=== PATIENT | female | born 1980 | race American Indian/Alaskan Native ===

== ENCOUNTER 2018-12-13 10:33 | Emergency (ER) | payer SELFPAY ==
[2018-12-13 10:40] VITALS: BP 131/90
[2018-12-13 11:12] LABS: HCG Qualitative,Urine Negative (Negative)
--- NOTE | 2018-12-13 11:15 | Emergency Department Report ---
HPI - General Chief Complaint: Urogenital-Female Time Seen by Provider: 12/13/18 10:49 - HPI HPI: 38-year-old [place] female presents to the emergency department, dropped off by a friend, with a complaint of a 5-6 day history of some suprapubic pain, burning with urination, increased frequency of urination. It started off as some left-sided flank pain. She says that she has noticed some blood in the urine with some small clots. She's been taking some ibuprofen and cranberry pills for her symptoms without any relief. At first she denied having any past medical history but it appears that the patient was placed on Flomax a few years ago and upon further investigation she does admit to history of kidney stones. She does not have a primary care physician. Her last menstrual cycle was November 27. ED Past Medical Hx - Past Medical History Previous Medical History?: No Hx Hypertension: No Hx Congestive Heart Failure: No Hx Diabetes: No Hx Deep Vein Thrombosis: No Hx Renal Disease: No Hx Sickle Cell Disease: No Hx Seizures: No Hx Asthma: No Hx COPD: No Hx HIV: No - Surgical History Past Surgical History?: No - Social History Smoking Status: Current Every Day Smoker Substance Use Type: None - Medications Home Medications: Home Medications Medication Instructions Recorded Confirmed Last Taken Type HYDROcodone/APAP 10-325 [Katy 1 each PO Q6HR PRN #30 tablet 09/22/14 Unknown Rx 10/325] Hyoscyamine Subl [Levsin Sl] 0.125 mg SL Q8HR PRN #20 tablet 09/22/14 Unknown Rx Ketorolac [Toradol] 10 mg PO Q8H PRN #6 tablet 09/22/14 Unknown Rx Metoclopramide [Reglan] 10 mg PO TID #30 tablet 09/22/14 Unknown Rx Ondansetron [Zofran Odt] 8 mg PO TID PRN #20 tab.rapdis 09/22/14 Unknown Rx Tamsulosin [Flomax] 0.2 mg PO QDAY 6 Days cap 09/22/14 Unknown Rx Sulfamethoxazole/Trimethoprim 1 each PO BID #20 tablet 02/04/15 Unknown Rx [Bactrim DS TAB] Cyclobenzaprine [Flexeril] 10 mg PO TID PRN #15 tablet 02/17/16 Unknown Rx Ibuprofen [Motrin] 800 mg PO Q8HR PRN #15 tablet 02/17/16 Unknown Rx HYDROcodone/APAP 5-325 [Katy 1 each PO Q6HR PRN #10 tablet 12/13/18 Unknown Rx 5/325] cephALEXin [Keflex] 1,000 mg PO Q12HR #20 cap 12/13/18 Unknown Rx ED Review of Systems ROS: Stated complaint: BLOOD IN URINE Other details as noted in HPI Constitutional: denies: chills, fever Eyes: denies: eye pain, vision change ENT: denies: ear pain, throat pain Respiratory: denies: cough, shortness of breath Cardiovascular: denies: chest pain, palpitations Gastrointestinal: abdominal pain. denies: nausea, vomiting Genitourinary: dysuria, frequency, hematuria. denies: discharge Musculoskeletal: denies: back pain, arthralgia Skin: denies: rash, lesions Neurological: denies: headache, weakness Physical Exam - Physical Exam Vital Signs: Vital Signs 12/13/18 10:39 Temperature 97.8 F Pulse Rate 94 H Respiratory 16 Rate Blood Pressure 131/90 O2 Sat by Pulse 98 Oximetry Physical Exam: GENERAL: The patient is well-developed well-nourished. HENT: Normocephalic. Atraumatic. Patient has moist mucous membranes. EYES: Extraocular motions are intact. NECK: Supple. Trachea is midline. CHEST/LUNGS: Clear to auscultation. There is no respiratory distress noted. HEART/CARDIOVASCULAR: Regular. There is no tachycardia. There is no murmur. ABDOMEN: Abdomen is soft, nontender. Patient has normal bowel sounds. There is no abdominal distention. SKIN: Skin is warm and dry. NEURO: The patient is awake, alert, and oriented. The patient is cooperative. The patient has no focal neurologic deficits. The patient has normal speech. MUSCULOSKELETAL: There is no tenderness or deformity. There is no evidence of acute injury. ED Course Vital Signs 12/13/18 10:39 Temperature 97.8 F Pulse Rate 94 H Respiratory 16 Rate Blood Pressure 131/90 O2 Sat by Pulse 98 Oximetry ED Medical Decision Making - Lab Data Result diagrams: 12/13/18 11:15 12/13/18 11:15 - Radiology Data Radiology results: report reviewed CT ABDOMEN PELVIS WITHOUT CONTRAST: HISTORY: Left flank pain. COMPARISON: none. TECHNIQUE: Helical CT in 1.25mm intervals without IV contrast. Sagittal and coronal reconstructions. FINDINGS: Lung bases: Normal. Liver: Normal. Biliary system: Normal. Pancreas: Normal. Spleen: Normal. Kidneys/ureters/bladder: Punctate bilateral renal calyceal stones are identified. The largest stone measures 3-4 mm at the inferior pole of the left kidney. No evidence for ureteral stones or hydronephrosis. The bladder is mostly empty and unremarkable. Adrenal glands: Normal. Aorta: Normal. Intestines: Normal. Appendix: Normal. Pelvic viscera: Normal. Ascites: None. Adenopathy: None. Musculoskeletal: Normal. IMPRESSION: Bilateral nephrolithiasis. No ureteral stones or hydronephrosis. Transcribed By: TTR Dictated By: SANAM MIXON JR, MD Electronically Authenticated By: SANAM MIXON JR, MD Signed Date/Time: 12/13/18 2926 - Medical Decision Making Patient presents to the emergency department with some dysuria, hematuria and some lower abdominal/suprapubic pain. Urinalysis does show significant urinary tract infection and hematuria. The rest of her labs have been unremarkable. CT of the abdomen and pelvis without contrast shows some intrarenal stones but nothing in the ureters or any hydronephrosis. It is otherwise an unremarkable exam. It is possible the patient has already recently passed a kidney stone. It is also possible that the urinary tract infection is causing inflammation and the hematuria. However I spoke with her in detail specifically regarding the hematuria and the importance of following up with urology to make sure that it is not something more dangerous. She has been given a referral for primary care and urology. She's been given a prescription for pain medications and antibiotics. She will return to the ER with any worsening of her symptoms or any acute distress. - Differential Diagnosis UTI, , nephrolithiasis, malignancy Critical Care Time: No Critical care attestation.: If time is entered above; I have spent that time in minutes in the direct care of this critically ill patient, excluding procedure time. ED Disposition Clinical Impression: Hematuria Qualifiers: Hematuria type: gross Qualified Code(s): R31.0 - Gross hematuria UTI (urinary tract infection) Qualifiers: Urinary tract infection type: acute cystitis Hematuria presence: with hematuria Qualified Code(s): N30.01 - Acute cystitis with hematuria Abdominal pain Qualifiers: Abdominal location: lower abdomen, unspecified Qualified Code(s): R10.30 - Lower abdominal pain, unspecified Disposition: TO HOME OR SELFCARE Is pt being admited?: No Condition: Stable Instructions: Urinary Tract Infection in Women (ED), Acute Hematuria (ED), Abdominal Pain (ED) Additional Instructions: Please follow up with a primary care physician in the next few days. I am giving you a referral for a local urologist, Dr. Cervantse, to follow up regarding your hematuria/blood in her urine. Take the antibiotics as prescribed. Return to the emergency Department with any worsening of your symptoms or with any acute distress. You have been prescribed a medication that is sedating and therefore should not be taken prior to driving, working, and responsible for children and in no way should be mixed with alcohol of any quantity. Prescriptions: cephALEXin [Keflex] 1,000 mg PO Q12HR #20 cap HYDROcodone/APAP 5-325 [Katy 5/325] 1 each PO Q6HR PRN #10 tablet PRN Reason: Pain Referrals: SERA CERVANTES MD [Staff Physician] - 2-3 Days [facility] [Outside] - 2-3 Days Time of Disposition: 12:18
[2018-12-13 11:19] LABS: Bilirubin,Urine NEG (Negative); Blood,Urine LG (Negative); Color,Urine Yellow (Yellow); Mucus,Urine 1+ /HPF; Urobilinogen,Urine < 2.0 mg/dL (<2.0)
[2018-12-13 11:20] LABS: Protein,Urine >500 mg/dL (Negative); RBC,Urine > 182.0 /HPF (0.0-6.0)
[2018-12-13 11:21] LABS: WBC,Urine > 182.0 /HPF (0.0-6.0)
[2018-12-13] MEDS ORDERED: NORCO 5/325 PO ONE (11:22)
[2018-12-13] MEDS ORDERED: KEFLEX PO ONE (11:22)
[2018-12-13 11:34] LABS: Basophils % (Auto) 0.4 % (0.0-1.8); Eosinophils # (Auto) 0.3 K/mm3 (0.0-0.4); Eosinophils % (Auto) 3.3 % (0.0-4.3); Hematocrit 42.7 % (30.3-42.9); Hemoglobin 14.7 gm/dl (10.1-14.3); Lymphocytes # (Auto) 2.5 K/mm3 (1.2-5.4); Lymphocytes % (Auto) 28.1 % (13.4-35.0); Mean Corpuscular HGB Conc 35 % (30-34); Mean Corpuscular Volume 92 fl (79-97); Monocytes # (Auto) 0.6 K/mm3 (0.0-0.8); Monocytes % (Auto) 6.8 % (0.0-7.3); Platelet Count 235 K/mm3 (140-440); Red Blood Count 4.64 M/mm3 (3.65-5.03); Red Cell Distribution Width 14.2 % (13.2-15.2)
[2018-12-13 11:56] LABS: BUN/Creatinine Ratio 12; Blood Urea Nitrogen 12 mg/dL (7-17); Calcium 9.2 mg/dL (8.4-10.2); Hemolysis Index 3
--- NOTE | 2018-12-13 12:03 | Cat Scan Report ---
CT ABDOMEN PELVIS WITHOUT CONTRAST: HISTORY: Left flank pain. COMPARISON: none. TECHNIQUE: Helical CT in 1.25mm intervals without IV contrast. Sagittal and coronal reconstructions. FINDINGS: Lung bases: Normal. Liver: Normal. Biliary system: Normal. Pancreas: Normal. Spleen: Normal. Kidneys/ureters/bladder: Punctate bilateral renal calyceal stones are identified. The largest stone measures 3-4 mm at the inferior pole of the left kidney. No evidence for ureteral stones or hydronephrosis. The bladder is mostly empty and unremarkable. Adrenal glands: Normal. Aorta: Normal. Intestines: Normal. Appendix: Normal. Pelvic viscera: Normal. Ascites: None. Adenopathy: None. Musculoskeletal: Normal. IMPRESSION: Bilateral nephrolithiasis. No ureteral stones or hydronephrosis.
== END 2018-12-13 12:34 | disposition home or self-care (01) ==
LOC: ED 10:33
DX: N39.0 Urinary tract infection, site not specified (principal); R31.0 Gross hematuria; F17.200 Nicotine dependence, unspecified, uncomplicated
CPT/HCPCS: 36415; 74176; 80048; 81001; 81025; 85025

== ENCOUNTER 2019-04-25 14:37 | Emergency (ER) | payer OTHER ==
--- NOTE | 2019-04-25 15:34 | Event Note ---
ED Screening Note Date of service: 04/25/19 Time: 15:28 ED Screening Note: 38 y/o female comes in for a couple of weeks. Was seen by her PCP and was given a Rx for US on 04/11/19. LMP 04/19/19. Has not followed up for US. This initial assessment/diagnostic orders/clinical plan/treatment(s) is/are subject to change based on patients health status, clinical progression and re- assessment by fellow clinical providers in the ED. Further treatment and workup at subsequent clinical providers discretion. Patient/guardian urged not to elope from the ED as their condition may be serious if not clinically assessed and managed. Initial orders include:
--- NOTE | 2019-04-25 16:45 | Ultrasound Report ---
ULTRASOUND PELVIS INDICATION: Abdominal and pelvic pain. TECHNIQUE: Transabdominal and Transvaginal. Duplex Color Doppler used: Yes. COMPARISON: No relevant prior imaging study available. FINDINGS: Uterus: Present. Size: 9.5 x 6.4 x 7.3 cm. Endometrial complex: Normal measuring 0.7 cm. Mass lesions: None. Additional findings: None. Right Ovary: Size: 3.7 x 1.8 x 2.3 cm Blood flow: Normal. Cyst or mass: None. Left Ovary: Size: 3.8 x 1.5 x 2.0 cm Blood flow: Normal. Cyst or mass: A 1.4 cm dominant follicle is noted without additional solid or cystic lesions. Urinary Bladder: Normal. Free Fluid: Small amount. Additional Findings: None. IMPRESSION: Nonspecific small amount of free fluid along the pelvis. No additional acute sonographic abnormality. Signer Name: Dallin Rios MD Signed: 04/25/2019 4:41 PM Workstation Name: [id number]
--- NOTE | 2019-04-25 19:29 | Emergency Department Report ---
ED Female HPI - General Chief complaint: Abdominal Pain Stated complaint: STOMACH PAIN/DOC ORDERED Time Seen by Provider: 04/25/19 15:15 Source: patient Mode of arrival: Ambulatory Limitations: No Limitations - History of Present Illness Initial comments: Patient is a 38-year-old female that presents emergency room with complaints of lower abdominal pain 3 weeks. Patient states the pain is worsening. Patient states the pain is 10 out of 10 pain states the pain is worse with movement and palpation. Patient states the pain is better with rest. Patient states her SPEECH PATHOLOGY ASSISTANT sent her over here for evaluation. Patient states she had an STD check 4 days ago and all were negative except for Trichomonas and patient is currently on Flagyl. Patient states she has taken 4 days of the Flagyl and has not seen any improvement. Patient denies vaginal discharge at this time but states she had a discharge in the past.. Patient denies abnormal. Patient states her last menstrual period was 04/19/2019. MD Complaint: vaginal discharge, pelvic pain -: Sudden Location: suprapubic Radiation: non-radiating Severity: severe Severity scale (0 -10): 10 Quality: stabbing Consistency: constant Improves with: other Worsens with: movement, other Are you Now?: No Associated Symptoms: vaginal discharge, abdominal pain. denies: vaginal bleeding, nausea/vomiting, fever/chills, headaches, loss of appetite, dysuria, hematuria, rash, seizure, shortness of breath, syncope, weakness - Related Data Sexually active: Yes : 5 Para: 5 A: 0 Previous Rx's Medication Instructions Recorded Last Taken Type HYDROcodone/APAP 10-325 [Flint 1 each PO Q6HR PRN #30 tablet 09/22/14 Unknown Rx 10/325] Hyoscyamine Subl [Levsin Sl] 0.125 mg SL Q8HR PRN #20 tablet 09/22/14 Unknown Rx Ketorolac [Toradol] 10 mg PO Q8H PRN #6 tablet 09/22/14 Unknown Rx Metoclopramide [Reglan] 10 mg PO TID #30 tablet 09/22/14 Unknown Rx Ondansetron [Zofran Odt] 8 mg PO TID PRN #20 tab.rapdis 09/22/14 Unknown Rx Tamsulosin [Flomax] 0.2 mg PO QDAY 6 Days cap 09/22/14 Unknown Rx Cyclobenzaprine [Flexeril] 10 mg PO TID PRN #15 tablet 02/17/16 Unknown Rx cephALEXin [Keflex] 1,000 mg PO Q12HR #20 cap 12/13/18 Unknown Rx HYDROcodone/APAP 5-325 [Flint 1 each PO Q6HR PRN #10 tablet 04/25/19 Unknown Rx 5-325 mg TAB] Ibuprofen [Motrin 800 MG tab] 800 mg PO Q8HR PRN #25 tablet 04/25/19 Unknown Rx Sulfamethoxazole/Trimethoprim 1 each PO BID 10 Days #20 tablet 04/25/19 Unknown Rx [Bactrim DS TAB] Allergies Allergy/AdvReac Type Severity Reaction Status Date / Time No Known Allergies Allergy Verified 04/25/19 14:58 ED Review of Systems ROS: Stated complaint: STOMACH PAIN/DOC ORDERED Other details as noted in HPI Constitutional: denies: chills, fever Eyes: denies: eye pain, eye discharge, vision change ENT: denies: ear pain, throat pain Respiratory: denies: cough, shortness of breath, wheezing Cardiovascular: denies: chest pain, palpitations Endocrine: no symptoms reported Gastrointestinal: abdominal pain. denies: nausea, vomiting, diarrhea Genitourinary: discharge. denies: urgency, dysuria Musculoskeletal: denies: back pain, joint swelling, arthralgia Skin: denies: rash, lesions Neurological: denies: headache, weakness, paresthesias Psychiatric: denies: anxiety, depression Hematological/Lymphatic: denies: easy bleeding, easy bruising ED Past Medical Hx - Past Medical History Previous Medical History?: No Hx Hypertension: No Hx Congestive Heart Failure: No Hx Diabetes: No Hx Deep Vein Thrombosis: No Hx Renal Disease: No Hx Sickle Cell Disease: No Hx Seizures: No Hx Asthma: No Hx COPD: No Hx HIV: No - Surgical History Past Surgical History?: No - Family History Family history: no significant - Social History Smoking Status: Current Every Day Smoker Substance Use Type: None - Medications Home Medications: Home Medications Medication Instructions Recorded Confirmed Last Taken Type HYDROcodone/APAP 10-325 [Flint 1 each PO Q6HR PRN #30 tablet 09/22/14 Unknown Rx 10/325] Hyoscyamine Subl [Levsin Sl] 0.125 mg SL Q8HR PRN #20 tablet 09/22/14 Unknown Rx Ketorolac [Toradol] 10 mg PO Q8H PRN #6 tablet 09/22/14 Unknown Rx Metoclopramide [Reglan] 10 mg PO TID #30 tablet 09/22/14 Unknown Rx Ondansetron [Zofran Odt] 8 mg PO TID PRN #20 tab.rapdis 09/22/14 Unknown Rx Tamsulosin [Flomax] 0.2 mg PO QDAY 6 Days cap 09/22/14 Unknown Rx Cyclobenzaprine [Flexeril] 10 mg PO TID PRN #15 tablet 02/17/16 Unknown Rx cephALEXin [Keflex] 1,000 mg PO Q12HR #20 cap 12/13/18 Unknown Rx HYDROcodone/APAP 5-325 [Flint 1 each PO Q6HR PRN #10 tablet 04/25/19 Unknown Rx 5-325 mg TAB] Ibuprofen [Motrin 800 MG tab] 800 mg PO Q8HR PRN #25 tablet 04/25/19 Unknown Rx Sulfamethoxazole/Trimethoprim 1 each PO BID 10 Days #20 tablet 04/25/19 Unknown Rx [Bactrim DS TAB] ED Physical Exam - General Limitations: No Limitations General appearance: alert, in no apparent distress - Head Head exam: Present: atraumatic, normocephalic - Eye Eye exam: Present: normal appearance - ENT ENT exam: Present: mucous membranes moist - Neck Neck exam: Present: normal inspection - Respiratory Respiratory exam: Present: normal lung sounds bilaterally. Absent: respiratory distress - Cardiovascular Cardiovascular Exam: Present: regular rate, normal rhythm. Absent: systolic murmur, diastolic murmur, rubs, gallop - GI/Abdominal GI/Abdominal exam: Present: soft, tenderness (suprapubic tenderness.), normal bowel sounds. Absent: distended, guarding - Extremities Exam Extremities exam: Present: normal inspection - Back Exam Back exam: Present: normal inspection - Neurological Exam Neurological exam: Present: alert, oriented X3 - Psychiatric Psychiatric exam: Present: normal affect, normal mood - Skin Skin exam: Present: warm, dry, intact, normal color. Absent: rash ED Course Vital Signs 04/25/19 14:54 Temperature 98.3 F Pulse Rate 72 Respiratory 16 Rate Blood Pressure 138/87 O2 Sat by Pulse 97 Oximetry - Reevaluation(s) Reevaluation #1: I discussed all results with patient. I discussed plan of care with patient. Patient agrees with plan of care. Patient is stable for discharge. Patient will be discharged home. Patient given discharge instructions. Patient voiced understanding of discharge instructions 04/25/19 21:55 ED Medical Decision Making - Lab Data Result diagrams: 04/25/19 19:31 04/25/19 19:31 - Radiology Data Radiology results: report reviewed CT abdomen pelvis w con INDICATION / CLINICAL INFORMATION: lower abd pain. free fluid in pelvis. TECHNIQUE: Axial CT imaging of abdomen and pelvis was obtained with IV contrast. Coronal an d sagittal reformatted imaging obtained and reviewed. All CT scans at this location are performed using CT dose reduction for ALARA by means of automated exposure control. COMPARISON: 12/13/2018 CT abdomen/pelvis FINDINGS: CT abdomen with contrast demonstrates normal appearance of the liver, spleen, pancreas, kidneys, and adrenal glands. There are a few tiny nonobstructing calculi in the lower po le of the left kidney. No hydronephrosis or renal mass identified. CT pelvis with contrast demonstrates normal appearance of the appendix. No pelvic mass or focal inflammatory changes noted. A small amount of free fluid is present in the posterior cul-de-sac. The uterus is mildly enlarged. No definite adnexal mass. GI tract is grossly unremarkable. Visualized lung bases are clear. No significant osseous abnormality. IMPRESSION: 1. Small amount of free fluid in the posterior cul-de-sac. 2. Mildly enlarged uterus, unchanged from prior exam. 3. Left nephrolithiasis. No obstruction. ULTRASOUND PELVIS INDICATION: Abdominal and pelvic pain. TECHNIQUE: Transabdominal and Transvaginal. Duplex Color Doppler used: Yes. COMPARISON: No relevant prior imaging study available. FINDINGS: Uterus: Present. Size: 9.5 x 6.4 x 7.3 cm. Endometrial complex: Normal measuring 0.7 cm. Mass lesions: None. Additional findings: None. Right Ovary: Size: 3.7 x 1.8 x 2.3 cm Blood flow: Normal. Cyst or mass: None. Left Ovary: Size: 3.8 x 1.5 x 2.0 cm Blood flow: Normal. Cyst or mass: A 1.4 cm dominant follicle is noted without additional solid or cystic lesions. Urinary Bladder: Normal. Free Fluid: Small amount. Additional Findings: None. IMPRESSION: Nonspecific small amount of free fluid along the pelvis. No additional acute sonographic abnormality. - Medical Decision Making Patient is a 38-year-old female that presents emergency room with complaints of lower abdominal pain and vaginal discharge. Patient recently saw her SPEECH PATHOLOGY ASSISTANT and had a full STD screen and was diagnosed with Trichomonas. Patient stated her gonorrhea and chlamydia were negative. Patient is currently on Flagyl. Patient had a CT done and an ultrasound done which were essentially negative for acute findings. Only finding on CT were free fluid in the pelvis nonspecific an enlarged uterus. Patient's labs essentially unremarkable. Patient stable for discharge. Patient discharged home. Patient will be given treatment for UTI since her UA was positive. Patient given Bactrim. Patient will also be given Rocephin and Zithromax prior to discharge. Patient will be discharged home with pain meds and ibuprofen. - Differential Diagnosis BV. UTI. STD. Abdominal pain. PID. Critical care attestation.: If time is entered above; I have spent that time in minutes in the direct care of this critically ill patient, excluding procedure time. ED Disposition Clinical Impression: Vaginal discharge, Pelvic pain, Hypokalemia UTI (urinary tract infection) Qualifiers: Urinary tract infection type: acute cystitis Hematuria presence: with hematuria Qualified Code(s): N30.01 - Acute cystitis with hematuria Abdominal pain Qualifiers: Abdominal location: lower abdomen, unspecified Qualified Code(s): R10.30 - Lo wer abdominal pain, unspecified Disposition: TO HOME OR SELFCARE Is pt being admited?: No Does the pt Need Aspirin: No Condition: Stable Instructions: Trichomoniasis (ED), Urinary Tract Infection in Women (ED), Vulvovaginal Candidiasis (ED), Abdominal Pain (ED) Additional Instructions: Patient to follow-up with primary care in 2-3 days. Patient to follow-up with baggage security checker in 2-3 days. Patient to return to ER if condition worsens. P atient to rest. Patient to increase water. Patient to take meds as directed. Patient's take Tylenol or ibuprofen when necessary for pain. No sexual activity until cleared by [facility]. Patient to eat a banana daily and have her potassium checked with her primary care. Prescriptions: Sulfamethoxazole/Trimethoprim [Bactrim DS TAB] 1 each PO BID 10 Days #20 tablet Ibuprofen [Motrin 800 MG tab] 800 mg PO Q8HR PRN #25 tablet PRN Reason: Pain HYDROcodone/APAP 5-325 [Flint 5-325 mg TAB] 1 each PO Q6HR PRN #10 tablet PRN Reason: Pain Referrals: PRIMARY CARE,MD [Primary Care Provider] - 2-3 Days Time of Disposition: 21:48
[2019-04-25 19:58] LABS: Basophils # (Auto) 0.1 K/mm3 (0.0-0.1); Basophils % (Auto) 0.7 % (0.0-1.8); Eosinophils # (Auto) 0.2 K/mm3 (0.0-0.4); Eosinophils % (Auto) 2.1 % (0.0-4.3); Hematocrit 41.5 % (30.3-42.9); Lymphocytes # (Auto) 3.5 K/mm3 (1.2-5.4); Lymphocytes % (Auto) 36.9 % (13.4-35.0); Mean Corpuscular HGB Conc 34 % (30-34); Mean Corpuscular Volume 94 fl (79-97); Monocytes # (Auto) 0.5 K/mm3 (0.0-0.8); Monocytes % (Auto) 5.4 % (0.0-7.3); Platelet Count 245 K/mm3 (140-440); Red Blood Count 4.42 M/mm3 (3.65-5.03); Red Cell Distribution Width 13.7 % (13.2-15.2)
[2019-04-25 20:14] LABS: Alanine Aminotransferase 14 units/L (7-56); Albumin 4.1 g/dL (3.9-5); BUN/Creatinine Ratio 14; Blood Urea Nitrogen 10 mg/dL (7-17); Calcium 8.8 mg/dL (8.4-10.2); Hemolysis Index 9
[2019-04-25 20:24] LABS: Bacteria,Urine 1+ /HPF (Negative); Bilirubin,Urine NEG (Negative); Blood,Urine NEG (Negative); Calcium Oxalate Crystals,Urine 1+; Color,Urine Amber (Yellow); Mucus,Urine 2+ /HPF; Protein,Urine <15 mg/dL mg/dL (Negative); Urobilinogen,Urine < 2.0 mg/dL (<2.0)
--- NOTE | 2019-04-25 21:12 | Cat Scan Report ---
CT abdomen pelvis w con INDICATION / CLINICAL INFORMATION: lower abd pain. free fluid in pelvis. TECHNIQUE: Axial CT imaging of abdomen and pelvis was obtained with IV contrast. Coronal and sagittal reformatte d imaging obtained and reviewed. All CT scans at this location are performed using CT dose reduction for ALARA by means of automated exposure control. COMPARISON: 12/13/2018 CT abdomen/pelvis FINDINGS: CT abdomen with contrast demonstrates normal appearance of the liver, spleen, pancreas, kidneys, and adrenal glands. There are a few tiny nonobstructing calculi in the lower pole of the left kidney. No hydronephrosis or renal mass identified. CT pelvis with contrast demonstrates normal appearance of the appendix. No pelvic mass or focal infla mmatory changes noted. A small amount of free fluid is present in the posterior cul-de-sac. The uteru s is mildly enlarged. No definite adnexal mass. GI tract is grossly unremarkable. Visualized lung bases are clear. No significant osseous abnormality. IMPRESSION: 1. Small amount of free fluid in the posterior cul-de-sac. 2. Mildly enlarged uterus, unchanged from prior exam. 3. Left nephrolithiasis. No obstruction. Signer Name: Petra Hernandez MD Signed: 04/25/2019 9:07 PM Workstation Name: [id number]
[2019-04-25] MEDS ORDERED: cefTRIAXone/NS 1 GM/50 ML 1 GM/50 ML BAG IV ONE (21:48)
[2019-04-25] MEDS ORDERED: AZITHROMYCIN 250 MG TAB PO ONE (21:48)
[2019-04-25 23:33] VITALS: BP 129/82
== END 2019-04-25 22:35 | disposition home or self-care (01) ==
LOC: ED 14:37
DX: N89.8 Other specified noninflammatory disorders of vagina (principal); E87.6 Hypokalemia; N39.0 Urinary tract infection, site not specified; F17.200 Nicotine dependence, unspecified, uncomplicated; Z79.899 Other long term (current) drug therapy
CPT/HCPCS: 36415; 74177; 76830; 76856; 80053; 81001; 84703; 85025; 96365; 99284; J0696; Q9967

== ENCOUNTER 2020-12-01 18:02 | Emergency (ER) | payer OTHER ==
--- NOTE | 2020-12-01 18:49 | Event Note ---
ED Screening Note Date of service: 12/01/20 Time: 18:48 ED Screening Note: Patient comes in complaining of left-sided chest pain. Onset a couple days ago. Intermittent in nature. Describes it as sharp and dull. Unable to describe any worsening or relieving symptoms. She reports shortness of breath when she stands up and walk. She reports mild nausea. She does have a history of tobacco use but denies any other significant past history. This initial assessment/diagnostic orders/clinical plan/treatment(s) is/are subject to change based on patients health status, clinical progression and re- assessment by fellow clinical providers in the ED. Further treatment and workup at subsequent clinical providers discretion. Patient/guardian urged not to elope from the ED as their condition may be serious if not clinically assessed and managed. Initial orders include: chest pain work up
--- NOTE | 2020-12-01 19:22 | XRay Report ---
CHEST 2 VIEWS INDICATION / CLINICAL INFORMATION: Chest Pain. COMPARISON: None available. FINDINGS: SUPPORT DEVICES: None. HEART / MEDIASTINUM: No significant abnormality. LUNGS / PLEURA: No significant pulmonary or pleural abnormality. No pneumothorax. ADDITIONAL FINDINGS: No significant additional findings. IMPRESSION: 1. No acute findings. Signer Name: Siddharth Johnson MD Signed: 12/01/2020 7:18 PM Workstation Name: [id number]
[2020-12-01 19:56] LABS: Basophils % (Auto) 0.5 % (0.0-1.8); Eosinophils # (Auto) 0.3 K/mm3 (0.0-0.4); Eosinophils % (Auto) 3.2 % (0.0-4.3); Hemoglobin 13.6 gm/dl (10.1-14.3); Lymphocytes # (Auto) 3.3 K/mm3 (1.2-5.4); Lymphocytes % (Auto) 36.5 % (13.4-35.0); Mean Corpuscular HGB Conc 34 % (30-34); Mean Corpuscular Volume 95 fl (79-97); Monocytes # (Auto) 0.6 K/mm3 (0.0-0.8); Monocytes % (Auto) 6.4 % (0.0-7.3); Platelet Count 236 K/mm3 (140-440); Red Blood Count 4.21 M/mm3 (3.65-5.03); Red Cell Distribution Width 14.4 % (13.2-15.2)
[2020-12-01 20:08] LABS: INR 0.99 (0.87-1.13)
[2020-12-01 20:09] LABS: Partial Thromboplastin Time 27.6 Sec. (24.2-36.6)
[2020-12-01 20:26] LABS: Alanine Aminotransferase 15 units/L (7-56); Albumin 3.7 g/dL (3.9-5); BUN/Creatinine Ratio 21; Blood Urea Nitrogen 15 mg/dL (7-17); Calcium 8.5 mg/dL (8.4-10.2); Hemolysis Index 8
[2020-12-01] MEDS ORDERED: traMADol 50 MG TAB PO ONE (20:53)
[2020-12-01] MEDS ORDERED: ACETAMINOPHEN 500 MG TAB PO ONE (20:53)
[2020-12-01] MEDS ORDERED: ONDANSETRON 4 MG ODT TAB PO ONE (20:54)
[2020-12-01 21:12] VITALS: BP 121/58
--- NOTE | 2020-12-01 23:57 | Emergency Department Report ---
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 Patient states that her job entails heavy lifting daily but that in the last 1 week she has had more workload than she has previously experienced. Patient states that the pain is especially worse with palpation of the left chest wall as well as left upper arm and shoulder and that he is unable to perform any active range of motion of the left arm. Patient states that she has been taking fkfm-nba-gqqctue pain medications with no relief. Patient denies shortness of breath, fever, chills, nausea, vomiting, diaphoresis, dizziness, syncope, headache, palpitations, cough, fall, numbness and tingling or weakness of upper and lower extremities bilaterally or back pain and abdominal pain. 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) re: denies: nausea, vomting, diaphoresis, dyspnea, sense of impending doom Other Symptoms: denies: cough, fever, syncope, rash, leg swelling, palpitations, burping Treatments Prior to Arrival: none - Related Data On Oral Contraceptives: No Previous Rx's Medication Instructions Recorded Last Taken Type HYDROcodone/APAP 10-325 [Calvin 1 each PO Q6HR PRN #30 tablet 09/22/14 Unknown Rx 10/325] Hyoscyamine Subl [Levsin Sl] 0.125 mg SL Q8HR PRN #20 tablet 09/22/14 Unknown Rx Ketorolac [Toradol] 10 mg PO Q8H PRN #6 tablet 09/22/14 Unknown Rx Metoclopramide [Reglan] 10 mg PO TID #30 tablet 09/22/14 Unknown Rx Ondansetron [Zofran Odt] 8 mg PO TID PRN #20 tab.rapdis 09/22/14 Unknown Rx Tamsulosin [Flomax] 0.2 mg PO QDAY 6 Days cap 09/22/14 Unknown Rx Cyclobenzaprine [Flexeril] 10 mg PO TID PRN #15 tablet 02/17/16 Unknown Rx cephALEXin [Keflex] 1,000 mg PO Q12HR #20 cap 12/13/18 Unknown Rx HYDROcodone/APAP 5-325 [Calvin 1 each PO Q6HR PRN #10 tablet 04/25/19 Unknown Rx 5-325 mg TAB] Sulfamethoxazole/Trimethoprim 1 each PO BID 10 Days #20 tablet 04/25/19 Unknown Rx [Bactrim DS TAB] Baclofen 20 mg PO Q8H PRN #21 tablet 12/01/20 Unknown Rx Ibuprofen [Motrin 800 MG tab] 800 mg PO Q8HR PRN #25 tablet 12/01/20 Unknown Rx traMADoL [Ultram] 50 mg PO Q6HR PRN #12 tablet 12/01/20 Unknown Rx Allergies Allergy/AdvReac Type Severity Reaction Status Date / Time No Known Allergies Allergy Verified 04/25/19 14:58 Heart Score - HEART Score History: Slightly suspicious EKG: Normal Age: < 45 Risk factors: 1-2 risk factors Troponin: < normal limit HEART Score: 1 - EKG Read Time Time EKG Completed: 18:12 EKG Read Time: 18:13 - Critical Actions Critical Actions: 0-3 pts:0.9-1.7%risk of adverse cardiac event.Candidate for discharge ED Review of Systems ROS: Stated complaint: CHEST PAIN Other details as noted in HPI Constitutional: denies: chills, fever Eyes: denies: eye pain, eye discharge, vision change ENT: denies: ear pain, throat pain Respiratory: denies: cough, shortness of breath, wheezing Cardiovascular: chest pain (Left sided chest wall pain). denies: palpitations Endocrine: no symptoms reported Gastrointestinal: denies: abdominal pain, nausea, vomiting, diarrhea Genitourinary: denies: urgency, dysuria, discharge Musculoskeletal: arthralgia (left shoulder and upper arm pain). denies: back pain, joint swelling Skin: denies: rash, lesions Neurological: denies: headache, weakness, paresthesias Psychiatric: denies: anxiety, depression Hematological/Lymphatic: denies: easy bleeding, easy bruising ED Past Medical Hx - Past Medical History Previous Medical History?: No Hx Hypertension: No Hx Congestive Heart Failure: No Hx Diabetes: No Hx Deep Vein Thrombosis: No Hx Renal Disease: No Hx Sickle Cell Disease: No Hx Seizures: No Hx Asthma: No Hx COPD: No Hx HIV: No - Social History Smoking Status: Current Every Day Smoker Substance Use Type: None - Medications Home Medications: Home Medications Medication Instructions Recorded Confirmed Last Taken Type HYDROcodone/APAP 10-325 [Calvin 1 each PO Q6HR PRN #30 tablet 09/22/14 Unknown Rx 10/325] Hyoscyamine Subl [Levsin Sl] 0.125 mg SL Q8HR PRN #20 tablet 09/22/14 Unknown Rx Ketorolac [Toradol] 10 mg PO Q8H PRN #6 tablet 09/22/14 Unknown Rx Metoclopramide [Reglan] 10 mg PO TID #30 tablet 09/22/14 Unknown Rx Ondansetron [Zofran Odt] 8 mg PO TID PRN #20 tab.rapdis 09/22/14 Unknown Rx Tamsulosin [Flomax] 0.2 mg PO QDAY 6 Days cap 09/22/14 Unknown Rx Cyclobenzaprine [Flexeril] 10 mg PO TID PRN #15 tablet 02/17/16 Unknown Rx cephALEXin [Keflex] 1,000 mg PO Q12HR #20 cap 12/13/18 Unknown Rx HYDROcodone/APAP 5-325 [Calvin 1 each PO Q6HR PRN #10 tablet 04/25/19 Unknown Rx 5-325 mg TAB] Sulfamethoxazole/Trimethoprim 1 each PO BID 10 Days #20 tablet 04/25/19 Unknown Rx [Bactrim DS TAB] Baclofen 20 mg PO Q8H PRN #21 tablet 12/01/20 Unknown Rx Ibuprofen [Motrin 800 MG tab] 800 mg PO Q8HR PRN #25 tablet 12/01/20 Unknown Rx traMADoL [Ultram] 50 mg PO Q6HR PRN #12 tablet 12/01/20 Unknown Rx ED Physical Exam - General Limitations: No Limitations General appearance: alert, in no apparent distress - Head Head exam: Present: atraumatic, normocephalic, normal inspection - Eye Eye exam: Present: normal appearance, PERRL, EOMI Pupils: Present: normal accommodation - ENT ENT exam: Present: normal exam, normal orophraynx, mucous membranes moist, TM's normal bilaterally, normal external ear exam - Neck Neck exam: Present: normal inspection, full ROM. Absent: tenderness - Respiratory Respiratory exam: Present: normal lung sounds bilaterally, chest wall tenderness (Palpable reproducible left-sided chest wall tenderness). Absent: respiratory distress, wheezes, rales, accessory muscle use, decreased breath sounds, prolong ed expiratory - Cardiovascular Cardiovascular Exam: Present: regular rate, normal rhythm, normal heart sounds. Absent: systolic murmur, diastolic murmur, rubs, gallop - GI/Abdominal GI/Abdominal exam: Present: soft, normal bowel sounds. Absent: tenderness, guarding, rebound, hyperactive bowel sounds, hypoactive bowel sounds, organomegaly - Extremities Exam Extremities exam: Present: normal inspection, full ROM, tenderness (Palpable reproducible left shoulder tenderness), normal capillary refill - Back Exam Back exam: Present: normal inspection, full ROM. Absent: tenderness, CVA tenderness (R), CVA tenderness (L), muscle spasm, paraspinal tenderness, vertebral tenderness - Neurological Exam Neurological exam: Present: alert, oriented X3, CN II-XII intact, normal gait, reflexes normal - Psychiatric Psychiatric exam: Present: normal affect, normal mood - Skin Skin exam: Present: warm, dry, intact, normal color. Absent: rash ED Course Vital Signs 12/01/20 12/01/20 18:09 21:11 Temperature 98.9 F 99.2 F Pulse Rate 87 73 Respiratory 20 18 Rate Blood Pressure 136/87 121/58 [Right] O2 Sat by Pulse 99 98 Oximetry MICHELE score - Michele Score Age > 65: (0) No Aspirin use within the Past 7 Days: (0) No 3 or more CAD Risk Factors: (0) No 2 or more Angina events in past 24 hrs: (0) No Known CAD with more than 50% Stenosis: (0) No Elevated Cardiac Markers: (0) No ST Deviation Greater than 0.5mm: (0) No MICHELE Score: 0 ED Medical Decision Making - Lab Data Result diagrams: 12/01/20 19:13 12/01/20 19:13 - EKG Data EKG shows normal: sinus rhythm Rate: normal - EKG Data Interpretation: normal EKG 12/02/20 00:02 EKG shows normal sinus rhythm with a ventricular rate of [address] or T wave abnormalities. - Radiology Data Radiology results: report reviewed, image reviewed [facility] [address] [place] [address] XRay Report Signed Patient: NATALI SERRANO MR#: [id number] : 1980 Acct:[id number] Age/Sex: 40 / F ADM Date: 12/01/20 Loc: ED Attending Dr: Ordering Physician: PRINCESS RAY Date of Service: 12/01/20 Procedure(s): XR chest routine 2V Accession Number(s): [id number] cc: PRINCESS RAY Fluoro Time In Minutes: CHEST 2 VIEWS INDICATION / CLINICAL INFORMATION: Chest Pain. COMPARISON: None available. FINDINGS: SUPPORT DEVICES: None. HEART / MEDIASTINUM: No significant abnormality. LUNGS / PLEURA: No significant pulmonary or pleural abnormality. No pneumothorax. ADDITIONAL FINDINGS: No significant additional findings. IMPRESSION: 1. No acute findings. 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 Patient states that her job entails heavy lifting daily but that in the last 1 week she has had more workload than she has previously experienced. Patient states that the pain is especially worse with palpation of the left chest wall as well as left upper arm and shoulder and that he is unable to p erform any active range of motion of the left arm. Patient states that she has been taking yqig-bli-fsqglci pain medications with no relief. In the ED, patient is alert and oriented x3 and is not in any distress with normal vital signs. The EKG shows normal sinus rhythm with a ventricular rate of [address] or T wave abnormalities. Chest x-ray shows no acute cardiopulmonary abnormalities or pneumonitis. All lab test results were reviewed and are all nonactionable including the initial and 3-hour repeat troponin levels. Patient's heart score is 1 due to tobacco abuse. Other differential diagnoses were considered during the ED course of treatment. Based on the patient's history of heavy lifting and worsening pain, and physical exam findings of reproducible significant left sided chest wall tenderness, normal lab test results and imaging reports, patient symptoms are likely due to acute costochondritis or muscle strain of chest wall given the fact that the patient confirmed for having had more strenuous heavy lifting at work causing the pain. Patient was therefore treated for pain in the ED and on reevaluation, patient's pain is well controlled with medication. Patient was therefore discharged home on pain medications and muscle relaxants and advised to follow-up with her primary care physician in 5 to 7 days for reevaluation or return to the ED immediately if symptoms get worse. - Differential Diagnosis ACS; pneumonia; Muscle strain; costochondritis; Dissection; PE Critical care attestation.: If time is entered above; I have spent that time in minutes in the direct care of this critically ill patient, excluding procedure time. ED Disposition Clinical Impression: Acute costochondritis, Left-sided chest wall pain, Muscle strain of anterior chest wall Disposition: DC-01 TO HOME OR SELFCARE Is pt being admited?: No Does the pt Need Aspirin: No Condition: Stable Instructions: Nonspecific Chest Pain, Adult, Costochondritis, [id number], Muscle Strain, [id number], Chest Wall Pain, [id number] Additional Instructions: All lab test results were reviewed and are all nonactionable including 2 sets of troponin levels. Your chest wall pain is reproducible on physical exam or during active and passive range of motion severe left arm and palpation of your chest wall. Therefore your symptoms are due to muscle strain and muscle spasm and inflammation of the chest wall following heavy lifting at work. Therefore take medications with food, drink plenty of fluids and follow-up with your primary care physician in 5 to 7 days for reevaluation. Return to the ED immediately if symptoms get worse. Prescriptions: Baclofen 20 mg PO Q8H PRN #21 tablet PRN Reason: Muscle strain Ibuprofen [Motrin 800 MG tab] 800 mg PO Q8HR PRN #25 tablet PRN Reason: Pain traMADoL [Ultram] 50 mg PO Q6HR PRN #12 tablet PRN Reason: Pain Referrals: [facility] [Provider Group] - 3-5 Days Forms: Work/School Release Form(ED) Time of Disposition: 23:54 Print Language: GREENLANDIC
--- NOTE | 2020-12-02 10:29 | Electrocardiograph Report ---
[facility] Test Date: 2020-12-01 Test Time: 18:12:43 Pat Name: NATALI SERRANO Department: Room: Gender: F Clay Temperer: CRISTHIAN : 1980 Requested By: PRINCESS RAY Order Number: [id number] Reading MD: Everardo Mohamud Measurements Intervals [place] Rate: 81 P: 57 W[place]: 179 QRS: 59 QRSD: 86 T: 47 QT: 352 QTc: 409 Interpretive Statements Sinus rhythm Probable left atrial enlargement No previous ECG available for comparison Electronically Signed On 12-02-2020 10:29:20 EDT by Everardo Mohamud
== END 2020-12-02 00:33 | disposition home or self-care (01) ==
LOC: ED 18:02
DX: S29.011A Strain of muscle and tendon of front wall of thorax, initial encounter (principal); M94.0 Chondrocostal junction syndrome [Tietze]; F17.200 Nicotine dependence, unspecified, uncomplicated; M25.512 Pain in left shoulder; M79.622 Pain in left upper arm; X50.1XXA Overexertion from prolonged static or awkward postures, initial encounter; Y93.89 Activity, other specified; Y92.89 Other specified places as the place of occurrence of the external cause; Y99.8 Other external cause status
CPT/HCPCS: 36415; 71046; 80053; 83690; 84484; 84703; 85025; 85610; 85730; 93005; 99284; Q0162